=== PATIENT | female | born 1990 | race Two or more races ===

== ENCOUNTER 2019-01-02 19:37 | Emergency (ER) | payer MEDICAID ==
[~2019-01-02] VITALS: Ht 157.5 cm; Wt 59.0 kg
[2019-01-02 20:08] VITALS: BP 123/88
== END 2019-01-03 01:30 | disposition home or self-care (01) ==
LOC: ER 19:37
DX: S53.401A Unspecified sprain of right elbow, initial encounter (principal); W18.39XA Other fall on same level, initial encounter; Y93.89 Activity, other specified; Y99.8 Other external cause status; Y92.89 Other specified places as the place of occurrence of the external cause
CPT/HCPCS: 73080

== ENCOUNTER 2023-11-28 20:25 | Emergency (ER) | payer OTHER ==
[~2023-11-28] VITALS: Ht 157.5 cm; Wt 75.1 kg
[2023-11-28 20:25] VITALS: BP 131/92; PULSE 92; RESP 18; O2SAT 94
[2023-11-28] MEDS ORDERED: CEPH250C PO (21:06)
== END 2023-11-29 01:43 | disposition left against medical advice (07) ==
LOC: ER 20:25
DX: S81.831A Puncture wound without foreign body, right lower leg, initial encounter (principal); Z98.890 Other specified postprocedural states; X58.XXXA Exposure to other specified factors, initial encounter; Y93.89 Activity, other specified; Y92.89 Other specified places as the place of occurrence of the external cause; Y99.8 Other external cause status